=== PATIENT | female | born 1955 | race Caucasian/White ===

== ENCOUNTER 2018-01-03 11:48 | Day surgery (SDC) | payer MEDICARE ==
[2018-01-02 08:46] VITALS: BMI 22.4
[2018-01-03] MEDS ORDERED: Fentanyl 100 MCG/2 ML VIAL ONE (14:07)
[2018-01-03] MEDS ORDERED: Midazolam HCl 2 mg/2 ml Vial ONE (14:07)
--- NOTE | 2018-01-03 14:52 | MRI ---
MRI BRAIN WITHOUT CONTRAST: HISTORY: Dizziness. FINDINGS: No restricted diffusion is seen to suggest an acute infarction. No evidence of infarct, hemorrhage, midline shift, or abnormal extraaxial fluid collection is seen. The ventricular size is appropriate and the basilar cisterns are patent. No significant white matter abnormalities identified. The visu alized paranasal sinuses are well aerated. There is a small amount of fluid in the mastoid air cells . IMPRESSION: No evidence of acute intracranial process. POS: OFF
== END 2018-01-03 15:15 | disposition home or self-care (01) ==
LOC: SDC/OP 11:48
PROVIDERS: ATTEND Psychiatry & Neurology Neurology
DX: R42 Dizziness and giddiness (principal)
CPT/HCPCS: 70551; J2250; J3010